=== PATIENT | male | born 1980 | race Caucasian/White ===

== ENCOUNTER → 2018-12-04 | Outpatient (CLI) | payer BC ==
--- NOTE | 2018-12-05 16:27 | CT ---
EXAMINATION TYPE: CT angio abd aorta w/Runoff DATE OF EXAM: 12/04/2018 COMPARISON: None HISTORY: R popliteal aneurysm CT DLP: 940.4 mGycm, Automated Exposure Control for Dose Reduction was Utilized. CONTRAST: CT scan of the abdomen and pelvis is performed with oral and with IV Contrast, patient injected with 125 mL of Isovue 370. Three-dimensional reconstructions performed on an alternate workstation. FINDINGS: The aorta shows normal caliber. There is no dissection. Celiac axis, superior mesenteric ar shane, renal arteries, inferior mesenteric artery, common iliac, internal and external iliac arteries are patent, common femoral, deep and superficial femoral arteries are patent and show normal caliber. Left popliteal artery and trifurcation vasculature is unremarkable. The right popliteal artery shows aneurysmal change with some luminal plaque and wall calcification, the aneurysm measures approximate ly 17 mm in greatest dimension. Trifurcation vasculature is patent on the right. There is some athero matous change along the right and left tibioperoneal trunks. Retrocaval left renal vein is noted inci dentally. LUNG BASES: No significant abnormality is appreciated. LIVER/GB: Liver is enlarged and shows low attenuation likely due to hepatic steatosis. Gallbladder is normal. PANCREAS: No significant abnormality is seen. SPLEEN: No significant abnormality is seen. ADRENALS: Some calcification associated with the left adrenal gland may be due to remote hemorrhage. KIDNEYS: No significant abnormality is seen. BOWEL: No significant abnormality is seen. PROSTATE/SEMINAL VESICLES: No gross abnormality seen. LYMPH NODES: No greater than 1cm abdominal or pelvic lymph nodes are appreciated. OSSEOUS STRUCTURES: There is a left knee joint effusion greater than right. There is a spinal curvatu re the lumbar spine. Degenerative disc changes are present. OTHER: Subcutaneous edema is present with in the right leg. IMPRESSION: Right popliteal artery aneurysm. Soft tissue swelling. Joint effusions. Hepatomegaly, hep atic steatosis.
== END | disposition home or self-care (01) ==
LOC: RADCTMAIN 09:06
PROVIDERS: ATTEND Surgery
DX: I72.4 Aneurysm of artery of lower extremity (principal); K76.0 Fatty (change of) liver, not elsewhere classified; R16.0 Hepatomegaly, not elsewhere classified
CPT/HCPCS: 75635; Q9967

== ENCOUNTER → 2019-09-23 | Day surgery (SDC) | payer BC ==
[2019-09-19 13:04] VITALS: BMI 27.6
[~2019-09-23] MED LIST: HYDROmorphone 1 MG/ML 1 ML SYRINGE IVP ONE; IOPAMIDOL-250 100ML BTL INTRAARTER ONE; LIDOCAINE 1% INJ 10MG/ML (20 ML MDV) SQ ONE; MIDAZOLAM 2 MG/2 ML VIAL IV ONE; SODIUM CHLORIDE 0.9% 1,000 ML in EMPTY BAG 1 BAG IV ONE; atenoloL 50 MG TAB PO STA; fentaNYL (PF) 50 MCG/ML 2 ML AMP IV ONE; hydrALAZINE HCL 20 MG/ML 1 ML VIAL IV ONE
[2019-09-23 08:43] VITALS: RESP 16; TEMP 99.1
--- NOTE | 2019-09-23 09:59 | P.OP ---
Date of Procedure: 09/23/19 Description of Procedure: Preoperative diagnosis: [Right popliteal artery aneurysm, Remedios four peripheral arterial disease with rest pain in the foot] Postoperative diagnosis: Same occluded popliteal artery aneurysm with reconstitution Procedure: [#1 ultrasound guided left common femoral artery access #2 aortogram with runoffs of the bilateral lower extremities #3 moderate conscious sedation with Versed, fentanyl and Dilaudid 15 minutes] Surgeon: Dora Bourgeois D.O. EBL: [Less than 5 mL] IV fluids: [See records] Urine output: [None] Drains: [None] Complications: [None immediately apparent] Condition: [Stable to recovery] Operative indication and findings: [The patient is a 39-year-old male with a previous known popliteal artery aneurysm in the fall. On repeat evaluation he did maintain the same size at 1.7 cm but he began having increasing pain in his leg. Workup and evaluation revealed abnormal ABIs with the right being 0.4 and the left being normal. He was found be without distal pulses at this follow-up evaluation as well therefore he was recommended to undergo angiogram with possible planning for stent versus bypass procedure. Risks and benefits were discussed. He seems understood and was willing to proceed as such] Procedure in detail: [Patient was brought to the special suite and placed in supine position. The bilateral groins were prepped and draped in usual sterile fashion. A preprocedure timeout performed, all parties are in agreement. The left common femoral artery was identified for ultrasound. The skin overlying was anesthetized 1% lidocaine plain. A multipurpose needle was used and access was gained under direct visualization. Seldinger technique was performed and a 5-Chinese sheath was placed. An aortogram was performed. The catheters and brought down the level of bifurcation and bilateral lower extremity Ross were performed. Catheters and wires removed. The sheath was removed and pressure was held until hemostasis was adequate. The aorta is normal in course and caliber bilateral renal arteries are patent without evidence of significant disease. The aorta, bilateral common, external and internal iliac arteries are patent without evidence of significant disease. On the right the common, superficial and deep femoral arteries are patent without evidence of disease. At level of the popliteal artery there is chronic total occlusion with significant collateralization and reconstitution of flow at the level of the anterior tibial takeoff and TP trunk. There are 3 vessels to the foot and intact pedal arch. On the left common, deep and superficial femoral arteries are patent without evidence of disease. 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 There are 3 vessels at the takeoff and down to the level of the ankle with an intact pedal arch.] Plan - Discharge Summary Discharge Rx Participant: No New Discharge Prescriptions: New Clopidogrel [Plavix] 75 mg PO DAILY #30 tablet No Action Colchicine 0.6 mg PO Q2D Allopurinol [Zyloprim] 300 mg PO DAILY PRN PRN Reason: gout Atenolol [Tenormin] 50 mg PO DAILY Ibuprofen 800 mg PO DAILY PRN PRN Reason: Pain Discharge Medication List Allopurinol [Zyloprim] 300 mg PO DAILY PRN 09/19/19 [History] Atenolol [Tenormin] 50 mg PO DAILY 09/19/19 [History] Colchicine 0.6 mg PO Q2D 09/19/19 [History] Ibuprofen 800 mg PO DAILY PRN 09/19/19 [History] Clopidogrel [Plavix] 75 mg PO DAILY #30 tablet 09/23/19 [Rx]
--- NOTE | 2019-09-23 10:14 | IR ---
EXAMINATION TYPE: IR angio abdominal w runoff DATE OF EXAM: 09/23/2019 CLINICAL HISTORY: Peripheral vascular disease. The resting right leg pain. TECHNIQUE: Fluoroscopy. COMPARISON: CT abdomen December 04, 2018. FINDINGS: Fluoroscopic guidance was provided during abdominal angiogram with runoff procedure perfor med by Dr. Bourgeois. A total of 0.8 minutes of fluoroscopic time was utilized during the procedure and several spot and cine images was acquired. Please refer to procedure note for further details as was not present nor performed procedure. IMPRESSION: As Above.
[2019-09-23 11:32] VITALS: BP 125/89; PULSE 80
== END ==
LOC: CATHCVL 08:13
PROVIDERS: ATTEND Surgery
DX: I72.4 Aneurysm of artery of lower extremity (principal); I70.221 Atherosclerosis of native arteries of extremities with rest pain, right leg; I70.92 Chronic total occlusion of artery of the extremities; F90.9 Attention-deficit hyperactivity disorder, unspecified type; F41.9 Anxiety disorder, unspecified; M10.9 Gout, unspecified; I10 Essential (primary) hypertension; Z98.890 Other specified postprocedural states; Z80.9 Family history of malignant neoplasm, unspecified; F17.200 Nicotine dependence, unspecified, uncomplicated; Z79.01 Long term (current) use of anticoagulants; Z79.1 Long term (current) use of non-steroidal anti-inflammatories (NSAID); Z79.899 Other long term (current) drug therapy
CPT/HCPCS: 36200; 75625; 75716; 76937; C1769 ×3; C1894; J2250; J0360; J2001; J3010; J1170; Q9966